=== PATIENT | male | born 1985 | race African-American/Black ===

== ENCOUNTER 2020-02-16 07:37 | Emergency (ER) | payer MEDICARE, OTHER ==
[~2020-02-16] VITALS: Ht 180.3 cm; Wt 74.8 kg
[2020-02-16 07:51] VITALS: BP 136/85
--- NOTE | 2020-02-16 07:55 | NUR ---
DR. RAMOS AT BEDSIDE FOR EVAL.
== END 2020-02-16 08:11 | disposition home or self-care (01) ==
LOC: ER 07:39
DX: J06.9 Acute upper respiratory infection, unspecified (principal); Z88.1 Allergy status to other antibiotic agents; Z88.0 Allergy status to penicillin

== ENCOUNTER 2020-08-31 01:57 | Emergency (ER) | payer OTHER ==
[~2020-08-31] VITALS: Ht 157.5 cm; Wt 85.3 kg
[2020-08-31 02:02] VITALS: BP 162/83
--- NOTE | 2020-08-31 02:17 | NUR ---
Patient discharged to home in stable condition. rX and Written and verbal after care instructions given. Patient verbalizes understanding of instruction.
== END 2020-08-31 02:19 | disposition home or self-care (01) ==
LOC: ER 02:04
DX: K12.1 Other forms of stomatitis (principal); Z88.0 Allergy status to penicillin; Z88.1 Allergy status to other antibiotic agents

== ENCOUNTER 2021-02-16 07:25 | Emergency (ER) | payer OTHER ==
[~2021-02-16] VITALS: Ht 172.7 cm; Wt 83.9 kg
[2021-02-16 07:38] VITALS: BP 151/79
[2021-02-16] MEDS ORDERED: NEOM10DR46 OT (08:02)
== END 2021-02-16 08:08 | disposition home or self-care (01) ==
LOC: ER 07:30
DX: H60.92 Unspecified otitis externa, left ear (principal); Z88.0 Allergy status to penicillin; Z88.1 Allergy status to other antibiotic agents